=== PATIENT | male | born 2005 | race Caucasian/White ===

== ENCOUNTER 2023-12-22 12:58 | Emergency (ER) | payer OTHER | END 2023-12-22 15:17 | disposition home or self-care (01) | LOC: MW.ED 12:58 | DX: S06.0X1A Concussion with loss of consciousness of 30 minutes or less, initial encounter (principal); M89.8X9 Other specified disorders of bone, unspecified site; Z75.8 Other problems related to medical facilities and other health care; V13.4XXA Pedal cycle driver injured in collision with car, pick-up truck or van in traffic accident, initial encounter | CPT/HCPCS: 70450; 70450-26; 73552-26-LT; 73552-RT; 73560-26-RT; 73560-RT; 73590-26-RT; 73590-RT; 99284 ==

== ENCOUNTER 2024-05-10 11:14 | Emergency (ER) | payer OTHER ==
[2024-05-10] MEDS: Lidocaine 2% Viscous Solution 15 ML UD PO ONE (12:40)
== END 2024-05-10 12:52 | disposition home or self-care (01) ==
LOC: MW.ED 11:14
DX: J02.9 Acute pharyngitis, unspecified (principal); F17.210 Nicotine dependence, cigarettes, uncomplicated; Z88.6 Allergy status to analgesic agent; Z75.8 Other problems related to medical facilities and other health care
CPT/HCPCS: 87428; 87651; 96374; 99283; A9270; J1100